=== PATIENT | female | born 1985 | race Hispanic/Latino ===

== ENCOUNTER 2017-04-21 21:52 | Outpatient (CLI) | payer OTHER, MEDICAID ==
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
[2017-04-22 02:51] VITALS: BP 111/70
[2017-04-22] MEDS ORDERED: LACTATED RINGERS 1,000 ML IV ONE (02:51)
[2017-04-22 03:59] LABS: Bilirubin,Urine NEG (Negative); Blood,Urine MOD (Negative); Ketones,Urine 20 mg/dL (Negative); Leukocyte Esterase,Urine TR (Negative); Mucus,Urine FEW /HPF; Nitrite,Urine NEG (Negative)
== END 2017-04-22 04:12 | disposition home or self-care (01) ==
LOC: TRG 21:52 → LD 21:54 → EDSTATUS 22:24 → TRG 04-22 01:56
PROVIDERS: ATTEND Obstetrics & Gynecology
DX: O26.893 Other specified pregnancy related conditions, third trimester (principal); R10.9 Unspecified abdominal pain; M54.9 Dorsalgia, unspecified; Z3A.34 34 weeks gestation of pregnancy; V89.2XXA Person injured in unspecified motor-vehicle accident, traffic, initial encounter; Y93.89 Activity, other specified; Y92.89 Other specified places as the place of occurrence of the external cause; Y99.8 Other external cause status
CPT/HCPCS: 59025; 81001; 96360; J7120